=== PATIENT | female | born 1970 | race Caucasian/White ===

== ENCOUNTER 2023-05-01 21:02 | Emergency (ER) | payer MEDICARE, MEDICAID, SELFPAY ==
[2023-05-01 21:06] VITALS: BP 127/82; PULSE 77; RESP 16; TEMP 36.6; O2SAT 96; BMI 26.4
--- NOTE | 2023-05-01 21:15 | PC.NURSE ---
PA at bedside to drain area
--- NOTE | 2023-05-01 21:18 | ED.SKABFB1 ---
HPI - Skin/Abscess/Foreign Bdy General Chief complaint: Skin/Abscess/Foreign Body Stated complaint: KNOT ON FACE Time Seen by Provider: 05/01/23 21:12 Source: patient Mode of arrival: walk-in Limitations: no limitations History of Present Illness HPI narrative: 53-year-old female presents with an abscess to the right side of her face that she noticed today. She states that she has been squeezing this and pus has been coming out. She states that she has had a bump here for a long time. Denies fever. Related Data Previous Rx's Medication Instructions Recorded sulfamethoxazole 800 1 tab PO Q12H 10 days #20 tabs 05/01/23 mg-trimethoprim 160 mg tablet (Bactrim DS) Allergies Allergy/AdvReac Type Severity Reaction Status Date / Time Influenza Virus Vaccines Allergy Severe Verified 05/01/23 21:10 Review of Systems ROS Status of ROS 10 or more systems reviewed and unremarkable except as noted in history and below Exam Narrative Exam Narrative: General: A&Ox3, no distress, talking in full an complete sentences skin: warm, dry, intact, erythematous fluctuant nodule the size of a marble to the right lower face, no drainage, no streaking head: normocephalic, atraumatic eyes: EOMI nose: nares patent neck: supple, trachea midline respiratory: non-labored extremities: FROM x 4 neuro: A&Ox3 psych: appropriate mood and affect, cooperative Constitutional Vital Signs, click to edit/add: Last Vital Signs Temp 97.8 F 05/01/23 21:06 Pulse 77 05/01/23 21:06 Resp 16 05/01/23 21:06 BP 127/82 05/01/23 21:06 Pulse Ox 96 05/01/23 21:06 O2 Del Method Room Air 05/01/23 21:13 Course Vital Signs Vital signs: Vital Signs Temperature 97.8 F 05/01/23 21:06 Pulse Rate 77 05/01/23 21:06 Respiratory Rate 16 05/01/23 21:06 Blood Pressure 127/82 05/01/23 21:06 Pulse Oximetry 96 05/01/23 21:06 Oxygen Delivery Method Room Air 05/01/23 21:06 Temperature 97.8 F 05/01/23 21:06 Pulse Rate 77 05/01/23 21:06 Respiratory Rate 16 05/01/23 21:06 Blood Pressure 127/82 05/01/23 21:06 Pulse Oximetry 96 05/01/23 21:06 Oxygen Delivery Method Room Air 05/01/23 21:13 MDM - Skin/Abscess/Foreign Bdy MDM Narrative Medical decision making narrative: Stab I&D with an 18-gauge needle was performed after an alcohol prep was used to prep the face. No local anesthetic used. Patient tolerated very well with minimal pain. She is given her first dose of Bactrim here and provided prescription and to follow-up with family doctor. afebrile, not tachypneic, not tachycardic, not hypoxic, non toxic appearing and ambulating at baseline and hemodynamically stable to be d/c. answered all questions. educated on SE of meds. pt in agreement with tx. educated when to return to ER. Discharge Plan Discharge Chief Complaint: Skin/Abscess/Foreign Body Clinical Impression: Cutaneous abscess of face Patient Disposition: Home, Self-Care Time of Disposition Decision: 21:18 Condition: Good Mode of Transportation: Private Vehicle Prescriptions / Home Meds: New sulfamethoxazole-trimethoprim [Bactrim DS] 800-160 mg tablet 1 tab PO Q12H 10 Days Qty: 20 0RF Instructions: Abscess (ED), Abscess Incision and Drainage (DC) Stand Alone Forms: Portal Instructions Discharge Date/Time: 05/01/23 21:35
[2023-05-01] MEDS: SULFAMETHOXAZOLE/TRIMETHOPRIM 800-160 MG TABLET 1 TAB PO (21:31)
== END 2023-05-01 21:35 | disposition home or self-care (01) ==
LOC: ER 21:19
PROVIDERS: Emergency Provider Internal Medicine
DX: L02.01 Cutaneous abscess of face (principal)
CPT/HCPCS: 10060; 99283

== ENCOUNTER 2023-08-14 11:07 | Outpatient (OUT) | payer MEDICARE, MEDICAID, SELFPAY ==
--- NOTE | 2023-08-14 11:12 | MM_ITS ---
Patient Name: CAROLE BERRY MR#: [id number] : 1970 Exam Date: 08/14/2023 Ordering Doctor: Non-Staff Physician RADIOLOGY REPORT PROCEDURE: MM TOMOSYNTHESIS SCREENING BI COMPARISON: MG MAMM DX 3D RT CAD, 05/30/2022. MG MAMM DX 3D RT CAD, 11/29/2021. MG MAMM SCREEN 3D MARITZA CAD, 11/12/2021. INDICATIONS: Screening Calculator Name NCI Breast Cancer Risk Assessment Tool 5 Year Breast Cancer Risk Not Reported. Lifetime Breast Cancer Risk Not Reported. Personal Breast Cancer No Personal Ovarian Cancer No Treatments None Family Cancers None LOCATION: [facility] BREAST COMPOSITION: Scattered areas fibroglandular density. FINDINGS: DIAGNOSTIC CATEGORY 2--BENIGN FINDING: RIGHT BREAST: No significant suspicious finding. Scattered benign-appearing nodules are present. No significant change has occurred. LEFT BREAST: No significant suspicious finding. No significant change has occurred. RECOMMENDATIONS: ROUTINE MAMMOGRAM AND CLINICAL EVALUATION IN 12 MONTHS. PLEASE NOTE: A NORMAL MAMMOGRAM DOES NOT EXCLUDE THE POSSIBILITY OF BREAST CANCER. A CLINICALLY SUSPICIOUS PALPABLE LUMP SHOULD BE BIOPSIED. Dictated by: Emerson Sevilla M.D. on 08/15/2023 at 11:35 Approved by: Emerson Sevilla M.D. on 08/15/2023 at 11:39
== END 2023-08-14 11:08 | disposition home or self-care (01) ==
LOC: MAMMO 11:07
DX: Z12.31 Encounter for screening mammogram for malignant neoplasm of breast (principal)
CPT/HCPCS: 77063; 77067

== ENCOUNTER 2023-08-15 16:48 | Emergency (ER) | payer MEDICARE, MEDICAID, SELFPAY ==
[2023-08-15] VITALS (8 sets, daily range): BP systolic 109–144; BP diastolic 67–87; PULSE 68–83; RESP 18; TEMP 36.6–36.9; O2SAT 97–100; BMI 28.3
[2023-08-15 16:55] LABS: Glucometer 159 mg/dL (74-106)
--- NOTE | 2023-08-15 17:03 | ED_ITS ---
HPI - General Adult General Chief complaint: Allergic Reaction Stated complaint: TREMORS Time Seen by Provider: 08/15/23 16:53 Source: patient Mode of arrival: ambulance Limitations: no limitations History of Present Illness HPI narrative: 53-year-old female presents for tremors which is now resolved. 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 She had a pelvic exam. She did not receive any medications. Her blood sugar was found to be normal upon arrival here. She states she's thirsty Related Data Home Medications Medication Instructions Recorded Confirmed estradiol 0.01% (0.1 mg/gram) 1 appful vaginal DAILY 08/15/23 08/15/23 vaginal cream Allergies Allergy/AdvReac Type Severity Reaction Status Date / Time Influenza Virus Vaccines Allergy Severe Verified 05/01/23 21:10 Review of Systems ROS Narrative A ten point review of systems is negative except as noted above. Exam Narrative Exam Narrative: Nurses note and vital signs reviewed and patient is not hypoxic. General: The patient appears well and in no apparent distress. Patient is resting comfortably on cart. Skin: Warm, dry, no pallor noted. There is no rash noted. Head: Normocephalic, atraumatic Eye: Normal conjunctiva, no drainage Ears, Nose, Mouth, and Throat: oral mucosa is moist. Nares patent. Cardiovascular: Regular Rate and Rhythm Respiratory: Patient is in no distress, no accessory muscle use, lungs are clear to auscultation, no wheezing, rales or rhonchi Back: non-tender GI: soft and nontender Musculoskeletal: The patient has no evidence of calf tenderness, no pitting edema, symmetrical pulses noted bilaterally Neurological: A&O, normal speech, no tremors Psychiatric: Cooperative Constitutional Vital Signs, click to edit/add: Last Vital Signs Temp 98.5 F 08/15/23 16:50 Pulse 83 08/15/23 16:50 Resp 18 08/15/23 16:50 BP 125/67 08/15/23 17:11 Pulse Ox 99 08/15/23 17:40 O2 Del Method Room Air 08/15/23 16:50 Course Vital Signs Vital signs: Vital Signs Temperature 98.5 F 08/15/23 16:50 Pulse Rate 83 08/15/23 16:50 Respiratory Rate 18 08/15/23 16:50 Blood Pressure 144/87 H 08/15/23 16:50 Pulse Oximetry 100 08/15/23 16:50 Oxygen Delivery Method Room Air 08/15/23 16:50 Temperature 98.5 F 08/15/23 16:50 Pulse Rate 83 08/15/23 16:50 Respiratory Rate 18 08/15/23 16:50 Blood Pressure 125/67 08/15/23 17:11 Pulse Oximetry 99 08/15/23 17:40 Oxygen Delivery Method Room Air 08/15/23 16:50 Medical Decision Making MDM Narrative Medical decision making narrative: She has normal vital signs and normal blood sugar. My clinical impression is that she has had anxiety. Her mother told the nurse that she gets like this when she goes to see a doctor. Treatment diagnosis and follow-up were discussed with the patient Differential Diagnosis Differential Diagnosis: fever, anxiety, hypoglycemia Lab Data Lab results reviewed: Yes I reviewed the patient's lab results Labs: Lab Results 08/15/23 Range/Units 16:54 POC Glucose 159 H (74-106) mg/dL Discharge Plan Discharge Chief Complaint: Allergic Reaction Clinical Impression: Anxiety Patient Disposition: Home, Self-Care Time of Disposition Decision: 18:21 Condition: Good Mode of Transportation: Private Vehicle Prescriptions / Home Meds: No Action estradiol 0.01 % (0.1 mg/gram) cream 1 appful VAGINAL DAILY Instructions: Anxiety (ED) Stand Alone Forms: Portal Instructions Referrals: Physician,Non-Staff, MD [Primary Care Provider] - 1 week
[2023-08-15] MEDS: DIPHENHYDRAMINE HCL 25 MG CAPSULE PO (17:14)
== END 2023-08-15 18:40 | disposition home or self-care (01) ==
PROVIDERS: Emergency Provider Emergency Medicine
DX: F41.9 Anxiety disorder, unspecified (principal)
CPT/HCPCS: 36415; 36416; 82948; 99283